=== PATIENT | male | born 1965 | race Caucasian/White ===

== ENCOUNTER 2017-04-16 00:30 | Emergency (ER) | payer BC ==
--- NOTE | ~2017-04-16 | CT2 ---
[facility] A Service of [facility] RADIOLOGY TEXT RESULTS PATIENT: MATTHEW BROWNE LOCATION: SED : 69 UNIT #: [id number] AGE: [address]: Jacoby Olguin MD SEX: M ORDER DR: [id number] [place] [address] [id number] E MR#: [id number] Acc #: [id number] NAME: MATTHEW BROWNE : 1965 SEX: M STUDY DATE/TIME: 04/16/2017 4:06 UNIT: SED ROOM: STUDY DESCRIPTION: CT Abd and Pelv W Cont Attending Physician: Jacoby Olguin M.D. Ordering Physician: Jacoby Olguin M.D. Primary Care Physician: Shorty Cifuentes M.D. MEDICAL IMAGING REPORT This report is preliminary unless electronic signature is present. EXAM CT abdomen and pelvis with contrast INDICATION Upper abdominal pain with nausea and vomiting and blood in stool. TECHNIQUE The patient was given 100 mL of Isovue-370. Axial 5 mm images were obtained through the abdomen and pelvis with IV and oral contrast. This CT exam was performed with one or more of the following radiation dose reduction techniques: Automatic exposure control, adjustment of mA and/or kV according to patient size, and iterative reconstruction. FINDINGS Lung bases are clear. The gallbladder has a stone within it measuring about 12 mm in diameter and is otherwise normal. The liver, spleen, pancreas, adrenal glands, and kidneys are normal except for a lower pole left renal cyst that measures about 3 cm in diameter. The bowel, including the appendix, appears normal. The bladder is normal. The prostate gland is normal. There are postoperative changes in the lumbar spine. IMPRESSION 1. Gallstone. 2. Simple left renal cyst. 3. The bowel appears normal including the appendix. Dictated by... Richmond Wharton M.D. [facility] A Service of [facility] RADIOLOGY TEXT RESULTS PATIENT: MATTHEW BROWNE LOCATION: SED : 69 UNIT #: [id number] AGE: [address]: Jacoby Olguin MD SEX: M ORDER DR: THIS IS AN ELECTRONICALLY VERIFIED REPORT Richmond Wharton M.D. at 04/17/2017 3:38 AM DEJUAN/opal TD: 04/16/2017 10:34 JOB #: [id number] MEDICAL IMAGING REPORT Page 1 of 1
[2017-04-16] MEDS ORDERED: EFFEXOR PO (00:43)
[2017-04-16] MEDS ORDERED: COUMADIN7.5 MG PO (00:43)
[2017-04-16] MEDS ORDERED: SEROQUEL300 MG (00:44)
[2017-04-16] MEDS ORDERED: KLONOPIN1 MG PO (00:44)
[2017-04-16] MEDS ORDERED: ZANAFLEX4 M1 PO (00:44)
[2017-04-16] MEDS ORDERED: GABAPENTIN300 MG PO (00:44)
[2017-04-16] MEDS ORDERED: HYDROCODON-ACE1 EA14 PO (00:45)
[2017-04-16 02:49] LABS: URINE SOURCE CLEAN CATCH
[2017-04-16 02:52] LABS: URINE APPEARANCE CLEAR; URINE BILIRUBIN NEG (NEG); URINE BLOOD NEG (NEG); URINE COLOR YELLOW; URINE GLUCOSE NEG (NORM); URINE KETONE NEG (NEG); URINE LEUKOCYTE ESTERASE NEG (NEG); URINE NITRATE NEG (NEG); URINE PH 5.5 (5-8); URINE PROTEIN NEG (NEG); URINE UROBILINOGEN 0.2 MG/DL (NORM)
[2017-04-16 02:53] LABS: MICRO INDICATED? NO
[2017-04-16 02:54] LABS: BASOPHIL# 0.1 X10e3 (0-0.3); BASOPHIL% 1.2 % (0-2.5); EOSINOPHIL% 0.1 % (0.0-7.0); HEMATOCRIT 40.8 % (38.0-50.0); HEMOGLOBIN 13.9 gm/dL (13.0-16.0); LYMPHOCYTE# 2.5 X10e3 (1.0-3.5); LYMPHOCYTE% 37.3 % (17.0-45.0); MEAN CELL VOLUME 94.2 FL (83-96); MEAN CORPUSCULAR HEMOGLOBIN 32.2 PG (28-34); MEAN CORPUSCULAR HGB CONC 34.1 g/dL (30-36); MEAN PLATELET VOLUME 7.9 FL (6.5-11.5); MONOCYTE# 0.4 X10e3 (0-1.0); MONOCYTE% 5.6 % (3.0-12.0); NEUTROPHIL# 3.7 X10e3 (1.5-7.1); NEUTROPHIL% 55.8 % (40-75); PLATELET COUNT 186 X10e3 (140-420); RED BLOOD COUNT 4.33 X10e (3.90-5.60); RED CELL DISTRIBUTION WIDTH 13.6 % (11.0-15.5); WHITE BLOOD COUNT 6.6 X10e3 (4.0-10.5)
[2017-04-16 03:01] LABS: DIFF IND NO
[2017-04-16 03:06] LABS: PROTHROMBIN TIME (PATIENT) 34.3 SECONDS (9.5-12.4)
[2017-04-16 03:13] LABS: PARTIAL THROMBOPLASTIN TIME 39.6 SECONDS (25.6-38.1)
[2017-04-16 03:14] LABS: ALBUMIN SERUM 4.3 g/dL (3.5-5.0); BILIRUBIN, DIRECT 0.1 mg/dL (0.0-0.2); BILIRUBIN,INDIRECT 0.3 mg/dL (0.0-0.9); BILIRUBIN,TOTAL 0.4 mg/dL (0.2-2.0); BUN/CREATININE RATIO 7.77; CALCIUM SERUM 9.2 mg/dL (8.4-10.2); CREATININE SERUM 0.9 mg/dL (0.6-1.4); GLOM FILT RATE Estimated 99.9 mL/min (>60); POTASSIUM 3.5 mmol/L (3.5-5.1); PROTEIN TOTAL SERUM 7.3 g/dL (6.0-8.3)
== END 2017-04-16 04:48 | disposition home or self-care (01) ==
LOC: SED 00:30
PROVIDERS: Emergency Medicine
DX: K80.70 Calculus of gallbladder and bile duct without cholecystitis without obstruction (principal); F17.210 Nicotine dependence, cigarettes, uncomplicated; Z98.890 Other specified postprocedural states; Z79.01 Long term (current) use of anticoagulants
CPT/HCPCS: 36415; 74177; 80048; 80076; 81003; 82150; 83690; 85025; 85610; 85730; 96374; 96375; 96376; 99284; C9113; J2270; J2405; Q9967

== ENCOUNTER 2017-06-23 01:52 | Inpatient (IN) | payer BC ==
[~2017-06-23] VITALS: Ht 177.8 cm; Wt 88.0 kg
--- NOTE | ~2017-06-23 | CR72 ---
[facility] A Service of [facility] RADIOLOGY TEXT RESULTS PATIENT: MATTHEW BROWNE LOCATION: [facility] : [birth year] UNIT #: [id number] AGE: [address]: Brii Gleason MD SEX: M ORDER DR: [id number] [facility] [address] [facility]. [place], [place] [address] [id number] I MR#: [id number] Acc #: [id number] NAME: MATTHEW BROWNE : 1965 SEX: M STUDY DATE/TIME: 06/24/2017 3:39 UNIT: [facility] ROOM: [facility] STUDY DESCRIPTION: CR Chest Single View Portable Attending Physician: Brii Gleason M.D. Ordering Physician: Marianne Arambula M.D. Primary Care Physician: Shorty Cifuentes M.D. MEDICAL IMAGING REPORT This report is preliminary unless electronic signature is present EXAM Chest x-ray 06/24/2017 HISTORY 51-year-old male admitted to the hospital through the ED yesterday after reported medication overdose. Respiratory failure, now extubated. TECHNIQUE AP portable chest x-ray. FINDINGS Slightly decreased overall lung expansion following extubation since yesterday. Endotracheal tube has also been removed. Mildly increased perihilar atelectasis. Lungs otherwise clear. Postop changes cardiac surgery including aortic valve replacement and left atrial appendage exclusion. Heart size and pulmonary vascularity remain normal. IMPRESSION Shallow lung expansion following extubation. Exam, otherwise, unchanged. Dictated by... Flaquito Varner M.D. THIS IS AN ELECTRONICALLY VERIFIED REPORT Flaquito Varner M.D. at 06/24/2017 8:56 PM CASSIA/opal TD: 06/24/2017 09:53 JOB #: [id number] [facility] A Service of [facility] RADIOLOGY TEXT RESULTS PATIENT: MATTHEW BROWNE LOCATION: [facility] : [birth year] UNIT #: [id number] AGE: [address]: Brii Gleason MD SEX: M ORDER DR: MEDICAL IMAGING REPORT Page 1 of 1 COPY
--- NOTE | ~2017-06-23 | DS ---
Unit #: [id number] #: [id number] Patient: MATTHEW BROWNE [id number] [facility] [address] [place], [place] [address] [id number] I MR#: [id number] NAME: MATTHEW BROWNE ROOM: [facility] Age: 51 Sex: M Admission Date: 06/23/2017 : 1965 Discharge Date: 06/24/2017 Attending Physician: Brii Gleason M.D. Primary Care Physician: Shorty Cifuentes M.D. DISCHARGE SUMMARY REASON FOR ADMISSION Suicidal attempt, acute respiratory failure. HISTORY OF PRESENT ILLNESS/HOSPITAL COURSE The patient is a 51-year-old male who had clear suicidal ideation while at home, took an unclear amount of benzodiazepines with clear intent to harm himself. Subsequently, he was seen by family members, transferred to [facility] by EMS services. Secondary to airway compromise in the ER, the patient was intubated, placed in ICU. Consultation was placed to Dr. Arambula and associates. The patient was extubated as per protocol. He has, otherwise, done well. Currently he is breathing on room air. He does not wish to speak to me in regard to reviewing prior past medical history; however, on exam he does reveal that he does have a murmur, which is heard, and he also tells me that he has had valve replacement, for which he takes Coumadin. His INR today at time of discharge currently stands at 2.8. Secondary to chronic anticoagulation, I believe his valve is mechanical in origin. Dr. Pozo has seen and evaluated the patient, felt as though the patient is appropriate for [facility] transfer. At the current time we will transfer him to [facility] for further evaluation. I will continue his Coumadin at 7.5 mg on a daily basis with the understanding that he should have daily PT and INR checks with the goal INR between 2 to 3. His other routine medications will be at the discretion of the psychiatrist at the outside facility. The patient is clinically and medically stable for discharge. It should be noted that on chest x-ray the patient did not have evidence of any acute infiltrates. FINAL DISCHARGE DIAGNOSES 1. Acute respiratory failure. 2. Suicidal attempt. 3. Benzodiazepine overdose. 4. Major depressive disorder. 5. Heart valve, I believe, mechanical. 6. Chronic anticoagulation. DISCHARGE MEDICATIONS [facility] for ongoing care. Unit #: [id number] #: [id number] Patient: MATTHEW BROWNE FOLLOW UP The patient has been instructed to follow up with his [facility] after he is discharged from [facility] for ongoing care and/or further management. Dictated by... Dayana Vines/salvador TD: 06/26/2017 08:32 JOB #: [id number] DISCHARGE SUMMARY Page 1 of 1 X Brii Gleason MD X DISCHARGE SUMMARY
--- NOTE | ~2017-06-23 | EKG ---
PATIENT: MATTHEW BROWNE UNIT #: [id number] Ventricular Rate: 70 BPM Atrial Rate: 70 BPM P-R Interval: 140 ms QRS Duration: 94 ms Q-T Interval: 406 ms QTC Calculation(Bezet): 438 ms P [place]: 70 degrees Calculated R [place]: 92 degrees Calculated T [place]: 82 degrees Diagnosis Line: Normal sinus rhythm Diagnosis Line: Rightward axis Diagnosis Line: Borderline ECG Diagnosis Line: No previous ECGs available Diagnosis Line: Confirmed by WILBUR CHIN MD ([id number]) on 06/23/2017 Diagnosis Line: 6:01:24 PM INTERPRETING MD: ELSY PARKER
--- NOTE | ~2017-06-23 | CO ---
Unit #: [id number] #: [id number] Patient: AUDIE BROWNE [id number] [facility] [address] [facility]. [place], [place] [address] [id number] I MR#: [id number] NAME: AUDIE BROWNE ROOM: [facility] Age: 51 Sex: M Admission Date: 06/23/2017 : 1965 Attending Physician: Brii Gleason M.D. Primary Care Physician: Shorty Cifuentes M.D. Consultation Date: 06/24/2017 CONSULTATION REPORT REASON FOR CONSULTATION Suicide attempt by taking an overdose. HISTORY OF PRESENT ILLNESS Mr. Audie Browne is a 51-year-old male, seen on 06/24/2017 in ICU 3 bed 22 at [facility]. The patient was lying comfortably in bed, dressed in hospital attire. The patient has a sitter. The patient admitted taking overdose of his medication. The patient was admitted with drug overdose and acute hypoxic failure, still somewhat confused, but reported sad, depressed, suicidal attempt, suicidal ideation. PAST PSYCHIATRIC HISTORY Remarkable for history of previous inpatient treatment at [facility] and outpatient with Dr. Leigh. The patient last seen by Dr. Leigh on 06/07/2017. MEDICAL HISTORY The patient has a history of coronary artery disease, history of valve replacement. MEDICATIONS The patient is on Coumadin, Effexor, Seroquel, Klonopin, Neurontin, Zanaflex, hydrocodone. ALLERGIES No known drug allergies. FAMILY HISTORY AND SOCIAL HISTORY The patient has a good support system. No history of abuse. No history of substance abuse. REVIEW OF SYSTEMS Complete review of systems is unremarkable except as mentioned above. PHYSICAL EXAMINATION VITAL SIGNS: Temperature 98.4, pulse 71, respirations 10, and blood pressure 97/40, oxygen saturation 97%. MENTAL STATUS EXAMINATION General appearance; the patient dressed casually in hospital attire, lying comfortably in bed. Attention span and concentration, fair. Speech, slow in volume and rate. Oriented in time, place, and person. Mood and affect; sad, dysphoric, flat. Thought process, circumstantial. Thought content, reported having suicidal ideation, recent suicide attempt. Unit #: [id number] #: [id number] Patient: UADIE BROWNE Denied any hallucination. Recent and remote memory, fair to slightly impaired. Language, fair. Fund of knowledge, fair. Insight and judgment, fair to slightly impaired. DIAGNOSES Psychiatric: Major depressive disorder, recurrent, severe, F33.2. Secondary diagnosis: Deferred. Medical diagnosis: Please refer to H and P. Stressors: Psychosocial stressors. ASSESSMENT AND PLAN 1. Supportive psychotherapy and psychoeducation provided to the patient. 2. Educated about benefits and side effects of medication and course and prognosis of illness. 3. Recommending after the patient is medically stable to transfer the patient to [facility] for psychiatric stabilization, continue with one-to-one monitoring for safety of the patient. Please feel free to call if any questions telephone #[phone]. Dictated by... Dayana Wakefield/mikki TD: 06/24/2017 17:30 JOB #: [id number] CONSULTATION REPORT Page 1 of 1 X Edouard Pozo MD X CONSULTATION REPORT
--- NOTE | ~2017-06-23 | CO ---
Unit #: [id number] #: [id number] Patient: MATTHEW BROWNE [id number] [address] [place], [place] [address] [id number] I MR#: [id number] NAME: MATTHEW BROWNE ROOM: [facility] Age: 51 Sex: M Admission Date: 06/23/2017 : 1965 Attending Physician: Brii Gleason M.D. Primary Care Physician: Shorty Cifuentes M.D. CONSULTATION REPORT REASON FOR CONSULTATION Acute respiratory failure and critical care management. CHIEF COMPLAINT Drug overdose. Patient was overdosed on Xanax, Klonopin. Approximately 15-30 tablets of Klonopin and 60 of Xanax. Presented to the emergency room and was intubated and currently intubated/sedated. REVIEW OF SYSTEMS Unobtainable. PAST MEDICAL HISTORY Significant for: 1. Aortic aneurysm. 2. Valvular heart disease. 3. Chronic back pain. 4. Anxiety/depression. SURGICAL HISTORY 1. Back fusion. 2. Shoulder surgery multiple times. MEDICATION Include: 1. Coumadin. 2. Effexor. 3. Seroquel. 4. Klonopin. 5. Gabapentin. 6. Zanaflex. 7. Hydrocodone. DRUG ALLERGIES No known drug allergies. SOCIAL HISTORY Smoking and substance abuse. PHYSICAL EXAMINATION VITAL SIGNS: Currently, temperature is 97, pulse is 64, blood pressure 104/56. NEUROLOGICAL: He is sedated, intubated. Unit #: [id number] #: [id number] Patient: MATTHEW BROWNE CVS: S1+ S2. RESPIRATIONS: Bilateral air entry, bilaterally clear. GI: Nontender, soft. Bowel sounds positive. EXTREMITIES: No edema. SKIN: No rashes, no ulcers. LYMPHATIC: No lymphadenopathy. DIAGNOSTIC STUDIES Labs and imaging has been reviewed. LABORATORY: Blood gas - pH of 7.45, pCO2 33, pO2 is 186. BUN is 8, creatinine 0.8, sodium 138, potassium is 3.5. His white count is 7, hemoglobin 12, hematocrit is 207. His INR is 2.5. ASSESSMENT AND PLAN 1. Altered mental status. 2. Drug overdose. 3. Acute respiratory failure. 4. History of valvular heart disease. 5. Chronic back pain. 6. Anxiety/depression. 7. Critically ill patient. 8. Continue ventilator support. 9. Spontaneous breathing trial. 10. Aspiration precaution. Patient has been started on Zosyn for possible aspiration pneumonitis. We will continue that for now and replaced electrolytes, GI/DVT prophylaxis, ICU protocol. Please see orders for detailed plan. Thank you very much for this consultation. Dictated by... Dayana Iverson/nieves TD: 06/24/2017 06:31 JOB #: [id number] CONSULTATION REPORT Page 1 of 1 X Marianne Arambula MD CONSULTATION REPORT
--- NOTE | ~2017-06-23 | CR72 ---
[facility] A Service of [facility] RADIOLOGY TEXT RESULTS PATIENT: MATTHEW BROWNE LOCATION: [facility] : [birth year] UNIT #: [id number] AGE: [address]: Brii Gleason MD SEX: M ORDER DR: [id number] [facility] [address] [facility]. [place], [place] [address] [id number] I MR#: [id number] Acc #: [id number] NAME: MATTHEW BROWNE : 1965 SEX: M STUDY DATE/TIME: 06/23/2017 2:34 UNIT: [facility] ROOM: [facility] STUDY DESCRIPTION: CR Chest Single View Portable Attending Physician: Brii Gleason M.D. Ordering Physician: Harish Nunez M.D. Primary Care Physician: Shorty Cifuentes M.D. MEDICAL IMAGING REPORT This report is preliminary unless electronic signature is present EXAM Chest x-ray, 06/23/2017. HISTORY 51-year-old male in the ED intubated after reported medication overdose. Shortness of air and chest pain. TECHNIQUE AP portable chest x-ray. FINDINGS Endotracheal tube tip in the mid thoracic trachea about 5.9 cm above the mitzi. NG tube extends below the diaphragm. Shallow lung expansion with minimal basilar atelectasis. Lungs otherwise clear. Postop changes prior cardiac surgery including aortic valve replacement and left atrial appendage exclusion. Heart size and pulmonary vascularity are normal. No pneumothorax. IMPRESSION 1. ETT in good position as noted above. NG tube extends below the diaphragm. 2. Shallow lung expansion. 3. Postop changes cardiac surgery as noted. Dictated by... Flaquito Varner M.D. THIS IS AN ELECTRONICALLY VERIFIED REPORT Flaquito Varner M.D. at 06/23/2017 9:53 PM RGW/tmw [facility] A Service of [facility] RADIOLOGY TEXT RESULTS PATIENT: MATTHEW BROWNE LOCATION: [facility] : [birth year] UNIT #: [id number] AGE: [address]: Brii Gleason MD SEX: M ORDER DR: TD: 06/23/2017 09:50 JOB #: [id number] MEDICAL IMAGING REPORT Page 1 of 1 COPY
--- NOTE | ~2017-06-23 | HP ---
Unit #: [id number] #: [id number] Patient: MATTHEW BROWNE [id number] [address] [address] [id number] Vanessa MR#: [id number] NAME: MATTHEW BROWNE ROOM: [facility] Age: 51 Sex: M Admission Date: 06/23/2017 : 1965 Attending Physician: Brii Gleason M.D. Primary Care Physician: Shorty Cifuentes M.D. HISTORY AND PHYSICAL REASON FOR ADMISSION Drug overdose, acute hypoxic respiratory failure. HISTORY OF PRESENT ILLNESS There are currently no family members present at bedside. I have elicited the majority of this history, as well as review of systems, after chart review. Apparently the patient had intentional drug overdose with Xanax and/or Klonopin with suicidal ideation. He subsequently was brought to the hospital via EMS services. Details are unclear. He was subsequently intubated in the ER. He was given charcoal at that time by ER physician. Appropriate medications were initiated, and the patient was placed on ICU floor where I am currently evaluating him. PAST MEDICAL HISTORY 1. Prior history of heart and/or coronary artery disease. 2. Prior history of valve replacement. Details unclear. I am not sure if it is tricuspid versus mitral and/or prior history of drug use. Details are not known to me. 3. Anxiety and depression. PAST SURGICAL HISTORY 1. Valve replacement, I believe mechanical. 2. Shoulder surgery. HOME MEDICATIONS 1. Coumadin. 2. Effexor. 3. Seroquel. 4. Klonopin. 5. Neurontin. 6. Zanaflex. 7. Hydrocodone. ALLERGIES No known drug allergies. REVIEW OF SYSTEMS Please see HPI. A 12-point review was, otherwise, negative except for those positively noted in the HPI. PHYSICAL EXAMINATION VITAL SIGNS: Temperature 98.3, pulse 73, respiratory rate 18, blood pressure 104/64. Unit #: [id number] #: [id number] Patient: MATTHEW BROWNE GENERAL APPEARANCE: The patient is a 51-year-old male currently intubated, sedated. No acute distress. HEAD EXAM: Atraumatic, normocephalic. EAR EXAM: Tympanic membranes do not reveal any erythema or injection. NECK: Supple. CVS: S1, S2 are audible. Click heard. Regular rate. RESPIRATORY EXAM: Diminished to anterior auscultation. GI/ABDOMEN: Nontender, nondistended. LOWER EXTREMITY: No evidence of lower extremity edema. NEUROLOGIC: Patient currently sedated. ER COURSE INITIAL LABORATORY STUDIES: Hemoglobin 12.2. Potassium 3.2. INR 2.5. Alcohol level 50. Urine tox positive for benzodiazepines. Initial arterial blood gases reveals pH of 7.455, pCO2 of 33, pO2 of 186 post intubation. CARDIOVASCULAR: Initial EKG shows normal sinus. INITIAL ADMISSION DIAGNOSES 1. Acute hypoxic respiratory failure. 2. Compromised airway. 3. Drug overdose, benzodiazepine. 4. Suicidal ideation. 5. Likely presumed aspiration pneumonia. 6. Prior history of anxiety and depression. 7. Prior history of valve replacement. Details unclear. 8. Questionable history of IV drug abuse in the past; again, no details and/or family members to verify. PLAN Admission. Lithograph Operator consult. Blood cultures, routine symptom management. We will try to obtain records from family members. All home medications will be placed on hold. The patient will be placed on prophylactic IV Zosyn in consideration for possible aspiration pneumonia. Details in regard to his valve replacement are not clear to me. I am not sure if he had a prior history of bacteremia and/or if it was secondary to other reasons. Once family members arrive, we will try to obtain previous records. There are no previous records in the [facility] system. Dictated by Dayana Vines/salvador TD: 06/23/2017 15:43 JOB #: [id number] Unit #: [id number] #: [id number] Patient: MATTHEW BROWNE HISTORY AND PHYSICAL Page 1 of 1 X Brii Gleason MD HISTORY AND PHYSICAL
[~2017-06-23 01:52] MED LIST: COUMADIN7.5 MG PO; EFFEXOR PO; GABAPENTIN300 MG PO; HYDROCODON-ACE1 EA14 PO; KLONOPIN1 MG PO; SEROQUEL300 MG; ZANAFLEX4 M1 PO
[2017-06-23 02:06] LABS: BASOPHIL# 0.1 X10e3 (0-0.3); BASOPHIL% 0.8 % (0-2.5); EOSINOPHIL% 0.2 % (0.0-7.0); HEMATOCRIT 35.2 % (38.0-50.0); HEMOGLOBIN 12.2 gm/dL (13.0-16.0); LYMPHOCYTE# 1.8 X10e3 (1.0-3.5); LYMPHOCYTE% 22.6 % (17.0-45.0); MEAN CELL VOLUME 92.7 FL (83-96); MEAN CORPUSCULAR HGB CONC 34.6 g/dL (30-36); MEAN PLATELET VOLUME 7.2 FL (6.5-11.5); MONOCYTE# 0.4 X10e3 (0-1.0); MONOCYTE% 4.9 % (3.0-12.0); NEUTROPHIL# 5.8 X10e3 (1.5-7.1); NEUTROPHIL% 71.5 % (40-75); PLATELET COUNT 198 X10e3 (140-420); RED CELL DISTRIBUTION WIDTH 13.4 % (11.0-15.5); WHITE BLOOD COUNT 8.1 X10e3 (4.0-10.5)
[2017-06-23 02:08] LABS: DIFF IND NO
[2017-06-23 02:20] LABS: INR 2.5; PARTIAL THROMBOPLASTIN TIME 36.7 SECONDS (23.5-31.3); PROTHROMBIN TIME (PATIENT) 27.6 SECONDS (10.0-11.7)
[2017-06-23 02:31] LABS: ALBUMIN SERUM 3.7 g/dL (3.5-5.0); ALCOHOL BLOOD 50 mg/dL (0); ALKALINE PHOSPHATASE 90 U/L (32-92); ALT (SGPT) 25 U/L (10-40); AST (SGOT) 16 U/L (10-42); BILIRUBIN, DIRECT 0.1 mg/dL (0.0-0.2); BILIRUBIN,INDIRECT 0.8 mg/dL (0.0-0.9); BILIRUBIN,TOTAL 0.9 mg/dL (0.2-2.0); BLOOD UREA NITROGEN 7 mg/dL (9-23); CALCIUM SERUM 8.5 mg/dL (8.4-10.2); CARBON DIOXIDE 21 mmol/L (22-31); CHLORIDE 104 mmol/L (100-111); GLUCOSE FASTING 90 mg/dL (70-110); POTASSIUM 3.2 mmol/L (3.5-5.1); PROTEIN TOTAL SERUM 6.6 g/dL (6.0-8.3); SALICYLATE <4.0 mg/dL; SODIUM 136 mmol/L (135-145)
[2017-06-23 02:35] LABS: ACETAMINOPHEN <10 ug/mL
[2017-06-23 03:35] LABS: ARTERIAL BLD GAS O2 SATURATION 95.4 % (90.0-100.0); ARTERIAL BLOOD GAS CARBOXY HB 3.7 %sat (0.0-9.0); ARTERIAL BLOOD GAS HCO3 23.2 mmol/L; ARTERIAL BLOOD GAS MET HB 0.8 %sat (0.0-2.0); ARTERIAL BLOOD GAS PCO2 33.1 mmHg (35.0-45.0); ARTERIAL BLOOD GAS pH 7.455 (7.350-7.450)
[2017-06-23 03:36] LABS: ARTERIAL BLOOD GAS ALLEN TEST NORMAL; ARTERIAL BLOOD GAS ART SITE RIGHT RADIAL; ARTERIAL BLOOD GAS DELIVERY VENT; ARTERIAL BLOOD GAS VENT MODE A/C; ARTERIAL DRAW? YES
[2017-06-23 04:07] LABS: AMPHETAMINE NEG (NEG); BARBITURATES NEG (NEG); BENZODIAZEPINES POS (NEG); COCAINE NEG (NEG); MARIJUANA NEG (NEG); OPIATES NEG (NEG); TRICYCLIC ANTIDEPRESSANTS NEG (NEG); U METHADONE NEG (NEG)
[2017-06-23 06:38] LABS: BASOPHIL# 0.1 X10e3 (0-0.3); BASOPHIL% 1.1 % (0-2.5); EOSINOPHIL% 0.3 % (0.0-7.0); HEMATOCRIT 34.1 % (38.0-50.0); HEMOGLOBIN 12.1 gm/dL (13.0-16.0); LYMPHOCYTE# 2.4 X10e3 (1.0-3.5); LYMPHOCYTE% 33.4 % (17.0-45.0); MEAN CELL VOLUME 92.1 FL (83-96); MEAN CORPUSCULAR HEMOGLOBIN 32.7 PG (28-34); MEAN CORPUSCULAR HGB CONC 35.5 g/dL (30-36); MEAN PLATELET VOLUME 7.5 FL (6.5-11.5); MONOCYTE# 0.4 X10e3 (0-1.0); NEUTROPHIL# 4.3 X10e3 (1.5-7.1); NEUTROPHIL% 60.2 % (40-75); PLATELET COUNT 207 X10e3 (140-420); RED CELL DISTRIBUTION WIDTH 13.8 % (11.0-15.5); WHITE BLOOD COUNT 7.2 X10e3 (4.0-10.5)
[2017-06-23 06:42] LABS: DIFF IND NO
[2017-06-23 07:34] LABS: BLOOD UREA NITROGEN 8 mg/dL (9-23); CALCIUM SERUM 8.8 mg/dL (8.4-10.2); CARBON DIOXIDE 22 mmol/L (22-31); CHLORIDE 106 mmol/L (100-111); CREATININE SERUM 0.8 mg/dL (0.6-1.4); GLOM FILT RATE Estimated 104.9 mL/min (>60); GLUCOSE FASTING 91 mg/dL (70-110); PHOSPHOROUS 3.5 mg/dL (2.5-4.6); POTASSIUM 3.5 mmol/L (3.5-5.1); SODIUM 138 mmol/L (135-145)
[2017-06-23 07:41] LABS: PROCALCITONIN <0.05 NG/ML
[2017-06-23 14:22] LABS: ARTERIAL BLD GAS O2 SATURATION 95.8 % (90.0-100.0); ARTERIAL BLOOD GAS ALLEN TEST NORMAL; ARTERIAL BLOOD GAS CARBOXY HB 0.6 %sat (0.0-9.0); ARTERIAL BLOOD GAS MET HB 0.8 %sat (0.0-2.0); ARTERIAL BLOOD GAS PCO2 34.2 mmHg (35.0-45.0); ARTERIAL BLOOD GAS PO2 85.8 mmHg (80.0-100); ARTERIAL BLOOD GAS pH 7.455 (7.350-7.450); ARTERIAL DRAW? YES
[2017-06-23 14:23] LABS: ARTERIAL BLOOD GAS ART SITE RIGHT RADIAL; ARTERIAL BLOOD GAS DELIVERY VENT; ARTERIAL BLOOD GAS VENT MODE CPAP
[2017-06-24 04:45] LABS: ARTERIAL BLD GAS O2 SATURATION 95.4 % (90.0-100.0); ARTERIAL BLOOD GAS CARBOXY HB 1.1 %sat (0.0-9.0); ARTERIAL BLOOD GAS HCO3 25.6 mmol/L; ARTERIAL BLOOD GAS PO2 82.8 mmHg (80.0-100); ARTERIAL BLOOD GAS pH 7.425 (7.350-7.450)
[2017-06-24 05:00] LABS: ARTERIAL BLOOD GAS ALLEN TEST NORMAL; ARTERIAL BLOOD GAS ART SITE LEFT RADIAL; ARTERIAL DRAW? YES
[2017-06-24 05:04] LABS: HEMATOCRIT 36.1 % (38.0-50.0); HEMOGLOBIN 12.5 gm/dL (13.0-16.0); MEAN CELL VOLUME 94.1 FL (83-96); MEAN CORPUSCULAR HEMOGLOBIN 32.7 PG (28-34); MEAN CORPUSCULAR HGB CONC 34.7 g/dL (30-36); MEAN PLATELET VOLUME 7.5 FL (6.5-11.5); RED BLOOD COUNT 3.84 X10e (3.90-5.60); RED CELL DISTRIBUTION WIDTH 14.1 % (11.0-15.5); WHITE BLOOD COUNT 8.1 X10e3 (4.0-10.5)
[2017-06-24 05:18] LABS: INR 2.8; PROTHROMBIN TIME (PATIENT) 30.3 SECONDS (10.0-11.7)
[2017-06-24 06:20] LABS: ALBUMIN SERUM 3.3 g/dL (3.5-5.0); ALKALINE PHOSPHATASE 73 U/L (32-92); ALT (SGPT) 14 U/L (10-40); AST (SGOT) 15 U/L (10-42); BILIRUBIN,TOTAL 0.7 mg/dL (0.2-2.0); CALCIUM SERUM 8.6 mg/dL (8.4-10.2); CARBON DIOXIDE 24 mmol/L (22-31); CHLORIDE 111 mmol/L (100-111); CREATININE SERUM 0.7 mg/dL (0.6-1.4); GLOM FILT RATE Estimated 110.9 mL/min (>60); GLUCOSE FASTING 90 mg/dL (70-110); POTASSIUM 3.3 mmol/L (3.5-5.1); PROTEIN TOTAL SERUM 6.1 g/dL (6.0-8.3); SODIUM 140 mmol/L (135-145)
[2017-06-24 06:21] LABS: BLOOD UREA NITROGEN <5 mg/dL (9-23); BUN/CREATININE RATIO 7.14
== END 2017-06-24 15:00 | DRG 917 ==
LOC: CED 01:52 → CEDOF 04:37 → CED 04:42 → CEDOF 05:55 → CICCU3 05:55
PROVIDERS: Emergency Medicine; Family Medicine; Internal Medicine; Nurse Practitioner
PROC: 0BH17EZ Insertion of Endotracheal Airway into Trachea, Via Natural or Artificial Opening (ICD-10-PCS; principal; 2017-06-23)
PROC: 5A1945Z Respiratory Ventilation, 24-96 Consecutive Hours (ICD-10-PCS; 2017-06-23)
DX: T42.4X2A Poisoning by benzodiazepines, intentional self-harm, initial encounter (principal); J96.01 Acute respiratory failure with hypoxia; J69.0 Pneumonitis due to inhalation of food and vomit; F33.2 Major depressive disorder, recurrent severe without psychotic features; I25.10 Atherosclerotic heart disease of native coronary artery without angina pectoris; Z95.2 Presence of prosthetic heart valve; F41.9 Anxiety disorder, unspecified; Z79.01 Long term (current) use of anticoagulants; T14.91 Suicide attempt
CPT/HCPCS: 31500; 36415; 36600; 51702; 71010; 80048; 80053; 80076; 80178; 80307; 82308; 82803; 82947; 83036; 83735; 84100; 84132; 84443; 85025; 85027; 85610; 85730; 87040; 93005; 94002; 94003; 94761; 96374; 99291; C9113; G0480; J0330; J1170; J1650; J2250; J2543

== ENCOUNTER 2017-06-24 11:00 | Inpatient (IN) | payer OTHER ==
[~2017-06-24] VITALS: Ht 185.4 cm; Wt 88.5 kg
--- NOTE | ~2017-06-24 | PN ---
Unit #: [id number] #: [id number] Patient: MATTHEW BROWNE [id number] [facility] [address] [place] [address] [id number] I MR#: [id number] NAME: MATTHEW BROWNE ROOM: [facility] Age: 51 Sex: M Admission Date: 06/24/2017 : 1965 Attending Physician: Darryl Rivera M.D. Admitting Physician: Darryl Rivera M.D. Primary Care Physician: Dayana Dey PROGRESS NOTES DATE 06/26/2017 DISCUSSION The patient is pleasant and cooperative today. He has tolerated initiation of Wellbutrin without complaint and is reporting some reduction in suicidal ideation. He does express concerns today regarding the closure of the outpatient [facility], and I have assured the patient that we will make arrangements for followup for him. Dictated by... Darryl Rivera M.D. CB/sumit TD: 06/26/2017 13:17 JOB #: [id number] [facility] PROGRESS NOTES Page 1 of 1 X Darryl Rivera MD X PROGRESS NOTE
--- NOTE | ~2017-06-24 | PA ---
Unit #: [id number] #: [id number] Patient: MATTHEW BROWNE [id number] [facility] [address] [place] [address] [id number] I MR#: [id number] NAME: MATTHEW BROWNE ROOM: [facility] Age: 51 Sex: M Admission Date: 06/24/2017 : 1965 Date of Assessment: 06/25/2017 Attending Physician: Darryl Rivera M.D. Admitting Physician: Darryl Rivera M.D. Primary Care Physician: Shorty Cifuentes M.D. PSYCHIATRIC ASSESSMENT IDENTIFYING INFORMATION The patient is a 51-year-old white male admitted in transfer from [facility] where he had been admitted following ingestion of Klonopin and Xanax. CHIEF COMPLAINT "Just battling depression." INFORMANT(S) Patient, reliability is good. HISTORY OF PRESENT ILLNESS The patient is a 51-year-old white male admitted to the [address] [place] [address] Unit following an ingestion of Xanax and Klonopin. The patient reports no specific precipitant to his episode but reports that he has battled depression for some time. He is currently prescribed Effexor XR and Seroquel and states that he has been compliant with these medications. 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 The patient reports ongoing hopelessness when seen today and is reporting some reduction in suicidal thinking. PAST PSYCHIATRIC HISTORY As noted previously, the patient is currently prescribed Seroquel and Effexor as well as clonazepam by his primary care physician. He has seen a psychiatrist in the past but has never been psychiatrically hospitalized and denies prior suicide attempts or gestures. PAST MEDICAL HISTORY The patient is status post multiple back and shoulder surgeries as well as heart valve surgery. MEDICATIONS 1. Effexor XR. 2. Seroquel. 3. Coumadin. 4. Clonazepam. 5. Hydrocodone 6. Tizanidine. ALLERGIES Unit #: [id number] #: [id number] Patient: MATTHEW BROWNE None. FAMILY HISTORY Noncontributory. SOCIAL HISTORY The patient lives with a roommate. He is not presently employed. He denies use of psychoactive substances at this time. MENTAL STATUS EXAMINATION Examination at this time reveals the patient to be a well-developed well-nourished white male appearing his stated age. He is in no apparent physical distress at the time of examination. He is awake, alert, and oriented in all spheres. His mood is mildly dysphoric, his affect congruent. Speech is generally well coherent. There are no gross deficits in memory or cognition noted. Intelligence is judged to be in the average range based on fund of knowledge. The patient is cooperative throughout the interview. He denies current suicidal or homicidal ideation or psychotic features. Judgment and insight appear to be intact. ASSETS AND LIABILITIES The patient's assets: Motivation for change. Liabilities: Lack of resources, unemployment. DIAGNOSTIC IMPRESSION Major depressive disorder, recurrent, moderate. TREATMENT PLAN The patient will be started on Wellbutrin XL 150 mg q.a.m. in hopes of augmenting the antidepressant effect of his prescribed medications, specifically Seroquel and Effexor. I will go ahead and restart clonazepam and hydrocodone. The patient will participate in appropriate order of milieu activities. ESTIMATED LENGTH OF STAY 5 to 7 days. Suicide precautions remain in place. Dictated by... Darryl Rivera M.D. RAEANN/sumit TD: 06/25/2017 13:53 JOB #: [id number] PSYCHIATRIC ASSESSMENT Page 1 of 1 X Darryl Rivera MD X PSYCHIATRIC ASSESSMENT
--- NOTE | ~2017-06-24 | HP ---
Unit #: [id number] #: [id number] Patient: AUDIE BROWNE [id number] [facility] [address] [place] [address] [id number] MR#: [id number] NAME: AUDIE BROWNE ROOM: [facility] Age: 51 Sex: M Admission Date: 06/24/2017 : 1965 Attending Physician: Daryrl Rivera M.D. Admitting Physician: Darryl Rivera M.D. Primary Care Physician: Shorty Cifuentes M.D. HISTORY AND PHYSICAL Audie is a 51 year old who was just discharged from [facility] after admission for suicide attempt with an overdose of Xanax. When medically stable, he was transferred to [facility] for psychiatric care. The patient was seen and H and P from [facility] dated 06/23/17 was reviewed. This is current. No changes. Please see H and P dated 06/23/17. Dictated by... Rebekah Wellington P.A.-C. for Dayana Vines/angelina TD: 06/25/2017 15:22 JOB #: [id number] HISTORY AND PHYSICAL Page 1 of 1 X Rebekah Wellington HISTORY AND PHYSICAL
--- NOTE | ~2017-06-24 | DS ---
Unit #: [id number] #: [id number] Patient: MATTHEW BROWNE [id number] [facility] [address] [place] [address] [id number] I MR#: [id number] NAME: MATTHEW BROWNE ROOM: [facility] Age: 51 Sex: M Admission Date: 06/24/2017 : 1965 Discharge Date: 06/27/2017 Attending Physician: Darryl Rivera M.D. Primary Care Physician: Shorty Cifuentes M.D. DISCHARGE SUMMARY REASON FOR ADMISSION The patient is a 51-year-old white male, admitted in transfer from [facility] where he had been admitted following an ingestion of Klonopin and Xanax. HOSPITAL COURSE The patient was admitted to the [address] [place] [address] unit and placed on suicide precautions, previously prescribed Klonopin was reinitiated and the patient was begun o Wellbutrin XL to augment to the antidepressant effect, previously prescribed Effexor and Seroquel which had been prescribed by Dr. Leigh. The patient showed rapid improvement and brightening of mood and affect and by 06/27 he denied suicidal ideation and requested discharge, and it was so ordered. DISCHARGE DIAGNOSES [place] I Major depressive disorder, recurrent, moderate. [place] II [place] III History of multiple back and shoulder surgeries. History of heart valve replacement. [place] IV [place] V DISPOSITION ON DISCHARGE The patient was discharged on the following medications: 1. Seroquel 300 mg at bedtime for mood stabilization 2. Zanaflex 4 mg daily for muscle relaxation 3. Effexor XR 225 mg daily for depression 4. Wellbutrin XL 150 mg daily for depression 5. Klonopin 1 mg three times daily for anxiety 6. Lortab 7.5/325 one tablet three times daily p.r.n. pain PROGNOSIS The patient's prognosis is considered fair. DIET AND ACTIVITY No dietary or physical restrictions were placed on the patient at the time of discharge. Follow up will take place through the auspices of [facility] mental health Unit #: [id number] #: [id number] Patient: MATTHEW BROWNE resources. Dictated by... Darryl Rivera M.D. CB/leatha TD: 06/28/2017 07:19 JOB #: [id number] DISCHARGE SUMMARY Page 1 of 1 X Darryl Rivera MD DISCHARGE SUMMARY
[2017-06-25 09:41] LABS: URINE APPEARANCE CLEAR; URINE BILIRUBIN NEG (NEG); URINE BLOOD NEG (NEG); URINE COLOR YELLOW; URINE GLUCOSE NEG (NEG); URINE KETONE NEG (NEG); URINE LEUKOCYTE ESTERASE NEG (NEG); URINE NITRATE NEG (NEG); URINE PH 6.5 (5-8); URINE PROTEIN NEG (NEG); URINE SPECIFIC GRAVITY 1.015 (1.003-1.035); URINE UROBILINOGEN 0.2 MG/DL (NEG)
[2017-06-25 10:10] LABS: AMPHETAMINE NEG (NEG); BARBITURATES NEG (NEG); BENZODIAZEPINES POS (NEG); COCAINE NEG (NEG); MARIJUANA NEG (NEG); OPIATES NEG (NEG); TRICYCLIC ANTIDEPRESSANTS NEG (NEG); U METHADONE NEG (NEG)
[2017-06-25 12:29] LABS: BASOPHIL# 0.1 X10e3 (0-0.3); BASOPHIL% 0.8 % (0-2.5); EOSINOPHIL% 0.1 % (0.0-7.0); HEMATOCRIT 36.2 % (38.0-50.0); HEMOGLOBIN 12.4 gm/dL (13.0-16.0); LYMPHOCYTE# 1.8 X10e3 (1.0-3.5); LYMPHOCYTE% 21.5 % (17.0-45.0); MEAN CELL VOLUME 95.1 FL (83-96); MEAN CORPUSCULAR HEMOGLOBIN 32.6 PG (28-34); MEAN CORPUSCULAR HGB CONC 34.2 g/dL (30-36); MEAN PLATELET VOLUME 8.2 FL (6.5-11.5); MONOCYTE# 0.4 X10e3 (0-1.0); NEUTROPHIL# 5.9 X10e3 (1.5-7.1); NEUTROPHIL% 72.6 % (40-75); PLATELET COUNT 186 X10e3 (140-420); RED BLOOD COUNT 3.81 X10e (3.90-5.60); RED CELL DISTRIBUTION WIDTH 13.8 % (11.0-15.5); WHITE BLOOD COUNT 8.2 X10e3 (4.0-10.5)
[2017-06-25 12:30] LABS: DIFF IND NO
[2017-06-25 12:38] LABS: INR 1.5; PROTHROMBIN TIME (PATIENT) 16.7 SECONDS (10.0-11.7)
[2017-06-25 12:47] LABS: ALBUMIN SERUM 3.5 g/dL (3.5-5.0); BILIRUBIN,TOTAL 0.8 mg/dL (0.2-2.0); BUN/CREATININE RATIO 12.22; CALCIUM SERUM 9.1 mg/dL (8.4-10.2); CREATININE SERUM 0.9 mg/dL (0.6-1.4); GLOM FILT RATE Estimated 99.9 mL/min (>60); POTASSIUM 3.8 mmol/L (3.5-5.1); PROTEIN TOTAL SERUM 6.1 g/dL (6.0-8.3)
[2017-06-26 12:35] LABS: INR 1.3; PROTHROMBIN TIME (PATIENT) 13.7 SECONDS (10.0-11.7)
[2017-06-27 12:41] LABS: INR 1.2; PROTHROMBIN TIME (PATIENT) 13.4 SECONDS (10.0-11.7)
== END 2017-06-27 16:40 | disposition home or self-care (01) | DRG 885 ==
LOC: P2L 15:43
PROVIDERS: Specialist
DX: F33.1 Major depressive disorder, recurrent, moderate (principal); Z95.2 Presence of prosthetic heart valve; Z56.0 Unemployment, unspecified
CPT/HCPCS: 80053; 80307; 81003; 82947; 85025; 85610; 86592

== ENCOUNTER 2017-07-02 15:00 | Inpatient (IN) | payer OTHER ==
[~2017-07-02] VITALS: Ht 180.3 cm; Wt 95.3 kg
--- NOTE | ~2017-07-02 | PN ---
Unit #: [id number] #: [id number] Patient: MATTHEW BROWNE [id number] [facility] [address] [place] [address] [id number] MR#: [id number] NAME: MATTHEW BROWNE ROOM: [facility] Age: 51 Sex: M Admission Date: 07/03/2017 : 1965 Attending Physician: Darryl Rivera M.D. Admitting Physician: Darryl Rivera M.D. Primary Care Physician: Dayana Dey PROGRESS NOTES DATE 07/09/2017 DISCUSSION The patient remains seclusive to room and continues to ruminate regarding the situation wherein he had taken a female peer from this facility to his home which she now states she regrets greatly. He reports that he "may be homeless" but has done little to evaluate the situation. I have today firmly redirected the patient's expectations of inpatient care. He continues to endorse positive hopelessness and suicidal ideation during today's interview. Dictated by... Darryl Rivera M.D. CB/sumit TD: 07/09/2017 14:30 JOB #: [id number] HUE PROGRESS NOTES Page 1 of 1 X Darryl Rivera MD X PROGRESS NOTE
--- NOTE | ~2017-07-02 | HP ---
Unit #: [id number] #: [id number] Patient: AUDIE BROWNE [id number] [facility] [address] [place] [address] [id number] I MR#: [id number] NAME: AUDIE BROWNE ROOM: [facility] Age: 51 Sex: M Admission Date: 07/03/2017 : 1965 Attending Physician: Darryl Rivera M.D. Admitting Physician: Darryl Rivera M.D. Primary Care Physician: Shorty Cifuentes M.D. HISTORY AND PHYSICAL Audie is a 51 year old admitted to [address] [place] [address] with depression and after an alleged polypharmacy overdose. He was charcoaled in a local emergency room and then transferred to [facility] for psychiatric care. Patient was seen and H and P from [facility] dated 06/23/17 was reviewed. This is current. No changes. Please see H and P dated 06/23/17. Dictated by... Rebekah Wellington P.A.-C. for Dayana Vines/angelina TD: 07/03/2017 17:52 JOB #: [id number] HISTORY AND PHYSICAL Page 1 of 1 X Rebekah Wellington HISTORY AND PHYSICAL
--- NOTE | ~2017-07-02 | PN ---
Unit #: [id number] #: [id number] Patient: MATTHEW BROWNE [id number] [facility] [address] [place] [address] [id number] I MR#: [id number] NAME: MATTHEW BROWNE ROOM: [facility] Age: 51 Sex: M Admission Date: 07/03/2017 : 1965 Attending Physician: Darryl Rivera M.D. Admitting Physician: Darryl Rivera M.D. Primary Care Physician: Dayana Dey PROGRESS NOTES DATE 07/05/2017 DISCUSSION The patient continues to endorse positive suicidal ideation during today's interview reporting hopelessness related to his home situation, i.e., his having brought a woman he had met in the hospital to his home. He is unsure if he will be able to return to that domicile. We continue current treatment, and the patient remains on the detoxification protocol with his Klonopin having been discontinued. Dictated by... Darryl Rivera M.D. CB/sumit TD: 07/05/2017 14:02 JOB #: [id number] HUE PROGRESS NOTES Page 1 of 1 X Darryl Rivera MD X PROGRESS NOTE
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
--- NOTE | ~2017-07-02 | PN ---
Unit #: [id number] #: [id number] Patient: MATTHEW BROWNE [id number] [facility] [address] [place] [address] [id number] I MR#: [id number] NAME: MATTHEW BROWNE ROOM: 15 Age: 51 Sex: M Admission Date: 07/03/2017 : 1965 Attending Physician: Darryl Rivera M.D. Admitting Physician: Darryl Rivera M.D. Primary Care Physician: Dayana Dey PROGRESS NOTES DATE 07/12/2017 DISCUSSION The patient reports some improvement in mood and reduction in suicidal ideation. When seen today, he is pushing for discharge. I will take the patient off of room lockout precautions should he sustain progress. Discharge could take place as early as tomorrow. Dictated by... Darryl Rivera M.D. CB/angelina TD: 07/12/2017 18:01 JOB #: [id number] HUE PROGRESS NOTES Page 1 of 1 X Darryl Rivera MD X PROGRESS NOTE
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
--- NOTE | ~2017-07-02 | PN ---
Unit #: [id number] #: [id number] Patient: MATTHEW BROWNE [id number] [facility] [address] [place] [address] [id number] MR#: [id number] NAME: MATTHEW BROWNE ROOM: [facility] Age: 51 Sex: M Admission Date: 07/03/2017 : 1965 Attending Physician: Darryl Rivera M.D. Admitting Physician: Darryl Rivera M.D. Primary Care Physician: Dayana Dey PROGRESS NOTES DATE 07/07/2017 DISCUSSION The patient continues to complain of depressed mood and suicidal ideation related to a recent life events. We continue current treatment. He is at least more active within the therapeutic milieu and is tolerating medications and discontinuation of Klonopin surprisingly well. Dictated by... Darryl Rivera M.D. CB/carlota TD: 07/07/2017 23:20 JOB #: [id number] HUE PROGRESS NOTES Page 1 of 1 X Darryl Rivera MD X PROGRESS NOTE
--- NOTE | ~2017-07-02 | HP ---
Unit #: [id number] #: [id number] Patient: AUDIE BROWNE [id number] [place] [address] [id number] MR#: [id number] NAME: AUDIE BROWNE ROOM: [facility] Age: 51 Sex: M Admission Date: 07/03/2017 : 1965 Attending Physician: Darryl Rivera M.D. Admitting Physician: Darryl Rivera M.D. Primary Care Physician: Shorty Cifuentes M.D. HISTORY AND PHYSICAL HISTORY OF PRESENT ILLNESS Audie is a 51 year old admitted to [facility] with depression and verbalizing wanting to hurt himself. He has had other admissions to this facility. His last admission was 06/25/17. Patient was seen and H and P from [facility] dated 06/23/17 was reviewed. This is current except he has multiple abrasions to his right hand and a single area to his right neck. The areas on his hand have scabbed over and there is no increased redness, swelling, heat or pus noted. The area along his neck was self-inflicted at time of intake. There is no increased redness, swelling, heat or pus noted. IMPRESSION 1. Psychiatric admission. 2. Laceration/abrasions to right hand and neck. RECOMMENDATIONS PSYCHIATRIC: Per psychiatrist. MEDICAL: 1. See no contraindication to participate in facility's activities. 2. Keep the areas clean with soap and water. No further Rx. MEDICAL PROGNOSIS Good. MEDICAL CONDITION Stable. Please see H and P from [facility] dated 06/23/17 for complete history and physical exam. Dictated by... Rebekah Wellington P.A.-C. for Dayana Vines/angelina TD: 07/03/2017 17:55 JOB #: [id number] Unit #: [id number] #: [id number] Patient: AUDIE BROWNE HISTORY AND PHYSICAL Page 1 of 1 X Rebekah Wellington X HISTORY AND PHYSICAL
--- NOTE | ~2017-07-02 | PN ---
Unit #: [id number] #: [id number] Patient: MATTHEW BROWNE [id number] [facility] [address] [place] [address] [id number] MR#: [id number] NAME: MATTHEW BROWNE ROOM: [facility] Age: 51 Sex: M Admission Date: 07/03/2017 : 1965 Attending Physician: Darryl Rivera M.D. Admitting Physician: Darryl Rivera M.D. Primary Care Physician: Dayana Dey NOTES DATE 07/10/2017 DISCUSSION On approach today, the patient is noted to be somewhat theatrically sitting with his head in his hands. He requests discharge from the hospital "so I can step in front of a bus." This physician feels as though these threats are probably manipulative in nature as the patient appears to be homeless at this point, and he is attempting to extend his stay in the hospital. However, I must take him at his word, and we will order an increase in suicide precautions to room lockout from 6 a.m. to 10 p.m. Dictated by... Darryl Rivera M.D. RAEANN/sumit TD: 07/10/2017 13:14 JOB #: [id number] HUE LACY NOTES Page 1 of 1 X Darryl Rivera MD X PROGRESS NOTE
--- NOTE | ~2017-07-02 | PN ---
Unit #: [id number] #: [id number] Patient: MATTHEW BROWNE [id number] [facility] [address] [place] [address] [id number] MR#: [id number] NAME: MATTHEW BROWNE ROOM: [facility] Age: 51 Sex: M Admission Date: 07/03/2017 : 1965 Attending Physician: Darryl Rivera M.D. Admitting Physician: Darryl Rivera M.D. Primary Care Physician: Dayana Dey PROGRESS NOTES DATE 07/06/2017 DISCUSSION The patient is resting comfortably today. Staff reports that he continues to endorse positive suicidal ideation. His detox from Klonopin is an uneventful one. Dictated by... Darryl Rivera M.D. CB/bzg TD: 07/06/2017 11:25 JOB #: [id number] HUE PROGRESS NOTES Page 1 of 1 X Darryl Rivera MD X PROGRESS NOTE
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
--- NOTE | ~2017-07-02 | PN ---
Unit #: [id number] #: [id number] Patient: MATTHEW BROWNE [id number] [facility] [address] [place] [address] [id number] MR#: [id number] NAME: MATTHEW BROWNE ROOM: [facility] Age: 51 Sex: M Admission Date: 07/03/2017 : 1965 Attending Physician: Darryl Rivera M.D. Admitting Physician: Darryl Rivera M.D. Primary Care Physician: Dayana Dey NOTES DATE 07/08/2017 DISCUSSION The patient remains seclusive to room and continues to complain of dysphoric mood. He is today complaining that "the homeless women are conspiring against me" claiming that his image has been placed on the internet and in the media. I will go ahead and increase the patient's Seroquel to 400 mg at bedtime but have a slight suspicion that some of the patient's claims of increased psychotic symptoms may be related to his wish to remain hospitalized given lack of resources outside the hospital and that some of these symptoms may in fact be manufactured to this end. Dictated by... Darryl Rivera M.D. CB/carlota TD: 07/08/2017 20:43 JOB #: [id number] HUE LACY NOTES Page 1 of 1 X Darryl Rivera MD X PROGRESS NOTE
[2017-07-03 19:03] LABS: INR 2.5
[2017-07-03 19:07] LABS: PROTHROMBIN TIME (PATIENT) 26.9 SECONDS (10.0-11.7)
[2017-07-04 13:02] LABS: INR 2.8; PROTHROMBIN TIME (PATIENT) 30.8 SECONDS (10.0-11.7)
[2017-07-05 12:59] LABS: INR 2.4; PROTHROMBIN TIME (PATIENT) 25.9 SECONDS (10.0-11.7)
[2017-07-07 11:42] LABS: AMPHETAMINE NEG (NEG); BARBITURATES NEG (NEG); BENZODIAZEPINES NEG (NEG); COCAINE NEG (NEG); MARIJUANA NEG (NEG); OPIATES NEG (NEG); TRICYCLIC ANTIDEPRESSANTS NEG (NEG); U METHADONE NEG (NEG)
[2017-07-08 13:39] LABS: INR 1.3; PROTHROMBIN TIME (PATIENT) 14.3 SECONDS (10.0-11.7)
[2017-07-09 16:52] LABS: INR 1.2; PROTHROMBIN TIME (PATIENT) 13.3 SECONDS (10.0-11.7)
[2017-07-10 13:08] LABS: INR 1.3; PROTHROMBIN TIME (PATIENT) 14.2 SECONDS (10.0-11.7)
[2017-07-11 09:51] LABS: INR 1.4; PROTHROMBIN TIME (PATIENT) 15.3 SECONDS (10.0-11.7)
== END 2017-07-13 14:26 | disposition home or self-care (01) | DRG 885 ==
LOC: P2L 07-03 14:56 → POF 07-03 20:02 → P2L 07-03 20:35 → P1S 07-10 17:55
PROVIDERS: Family Medicine; Physician Assistant Medical; Specialist
PROC: HZ2ZZZZ Detoxification Services for Substance Abuse Treatment (ICD-10-PCS; principal; 2017-07-03)
DX: F33.3 Major depressive disorder, recurrent, severe with psychotic symptoms (principal); R45.851 Suicidal ideations; Z91.14 Patient's other noncompliance with medication regimen; Z95.2 Presence of prosthetic heart valve; S61.411D Laceration without foreign body of right hand, subsequent encounter; S11.91XD Laceration without foreign body of unspecified part of neck, subsequent encounter; Y28.9 Contact with unspecified sharp object, undetermined intent; G89.29 Other chronic pain
CPT/HCPCS: 80307; 85610; 86592